=== PATIENT | female | born 1990 | race African-American/Black ===

== ENCOUNTER 2021-02-10 18:33 | Emergency (ER) | payer BC ==
[~2021-02-10] VITALS: Ht 172.7 cm; Wt 59.0 kg
== END 2021-02-10 21:14 | disposition home or self-care (01) ==
LOC: ER 18:33
DX: N39.0 Urinary tract infection, site not specified (principal); B96.29 Other Escherichia coli [E. coli] as the cause of diseases classified elsewhere